=== PATIENT | female | born 1960 | race Asian ===

== ENCOUNTER 2017-01-05 10:27 | Inpatient (IN) | payer MEDICARE, MEDICAID ==
[~2017-01-05] VITALS: Ht 157.5 cm; Wt 44.0 kg
[2017-01-05 12:39] VITALS: BP 122/92
[2017-01-05] MEDS ORDERED: ZOLPIDEM TARTRATE 5 MG TABLET PO PRN (12:45)
[2017-01-05] MEDS ORDERED: HALOPERIDOL 5 MG TABLET PO PRN (12:45)
[2017-01-05] MEDS ORDERED: INFLUENZA VIRUS VACCINE QVS 2016-17 (3YR+)/PF 60 MCG/0.5 ML SYRINGE IM ONE (13:45)
[2017-01-05] MEDS ORDERED: PNEUMOCOCCAL VACCINE POLYVALENT 0.5 ML VIAL [PPSV23] IM ONE (13:45)
[2017-01-05 15:13] VITALS: BP 143/90
[2017-01-05] MEDS: LORazepam 1 MG TABLET PO PRN (16:56)
[2017-01-05 17:01] VITALS: BP 115/90
[2017-01-06 08:40] VITALS: BP 122/81
[2017-01-06 08:42] LABS: BASOPHILS % (AUTO) 0.5 % (0.0-2.0); EOSINOPHILS % (AUTO) 0.3 % (1.0-6.0); HEMATOCRIT 37.4 % (36-46); HEMOGLOBIN 12.1 g/dL (12.0-16.0); LYMPHOCYTES # (AUTO) 1.3 K/uL (1.0-4.8); LYMPHOCYTES % (AUTO) 21.3 % (22.0-44.0); MEAN CORPUSCULAR HGB CONC 32.3 G/dL (31.0-37.0); MEAN CORPUSCULAR VOLUME 90 fL (80-100); MONOCYTES # (AUTO) 0.4 K/uL (0.1-1.0); NEUTROPHILS # (AUTO) 4.3 K/uL (1.8-7.7); NEUTROPHILS % (AUTO) 71.9 % (40.0-70.0); PLATELET COUNT (AUTO) 289 K/uL (150-450); RED BLOOD CELL COUNT(AUTO) 4.18 MIL/uL (4.00-5.20); RED CELL DISTRIBUTION WIDTH 13.4 % (11.5-14.5)
[2017-01-06 09:09] LABS: ALANINE AMINOTRANSFERASE 27 U/L (12-78); ALBUMIN 3.4 g/dL (3.4-5.0); ANION GAP 8 mmol/L (8-16); ASPARTATE AMINOTRANSFERASE 22 U/L (15-37); BILIRUBIN,TOTAL 0.4 mg/dL (0.1-1.0); CALCIUM, TOTAL 8.6 mg/dL (8.8-10.5); CARBON DIOXIDE 29 mmol/L (22-29); CHLORIDE 107 mmol/L (98-107); CREATININE 0.66 mg/dL (0.60-1.30); GLOMERULAR FILTR. RATE CALC > 60 mL/min (>60); POTASSIUM 3.9 mmol/L (3.5-5.1); SODIUM SERUM 144 mmol/L (136-145); TOTAL PROTEIN, SERUM 7.2 g/dL (6.4-8.2); UREA NITROGEN, BLOOD 16 mg/dL (7-18)
[2017-01-06 16:40] VITALS: BP 140/84
[2017-01-06] MEDS: HALOPERIDOL 5 MG TABLET PO SCH (20:22)
[2017-01-07 06:27] VITALS: BP 110/72
[2017-01-07 08:44] LABS: CHOL/HDL RATIO 2.1 (3.9-5.7); THYROID STIMULATING HORMONE 0.47 uIU/mL (0.36-3.74)
[2017-01-07 08:59] VITALS: BP 121/105
[2017-01-07 16:33] VITALS: BP 130/80
[2017-01-07] MEDS: HALOPERIDOL 5 MG TABLET PO SCH (20:40)
[2017-01-08 07:09] VITALS: BP 110/72
[2017-01-08 08:34] VITALS: BP 117/62
[2017-01-08] MEDS: CHOLECALCIFEROL (VIT D3) 1,000 UNITS TABLET PO SCH (10:06)
[2017-01-08 16:20] VITALS: BP 130/95
[2017-01-08] MEDS: HALOPERIDOL 5 MG TABLET PO SCH (21:08)
[2017-01-09 06:33] VITALS: BP 114/63
[2017-01-09 08:01] VITALS: BP 130/78
[2017-01-09] MEDS: CHOLECALCIFEROL (VIT D3) 1,000 UNITS TABLET PO SCH (09:27)
[2017-01-09 16:15] VITALS: BP 118/65
[2017-01-09] MEDS: HALOPERIDOL 5 MG TABLET PO SCH (20:35)
[2017-01-10 07:08] VITALS: BP 112/62
[2017-01-10] MEDS: CHOLECALCIFEROL (VIT D3) 1,000 UNITS TABLET PO SCH (08:05)
[2017-01-10] MEDS: LORazepam 1 MG TABLET PO PRN (08:05)
[2017-01-10 08:48] VITALS: BP 126/79
[2017-01-10 16:25] VITALS: BP 120/84
[2017-01-10] MEDS: HALOPERIDOL 5 MG TABLET PO SCH (20:29)
[2017-01-11 06:32] VITALS: BP 117/78
[2017-01-11 08:02] VITALS: BP 112/63
[2017-01-11] MEDS: CHOLECALCIFEROL (VIT D3) 1,000 UNITS TABLET PO SCH (09:34)
[2017-01-11] MEDS: LORazepam 1 MG TABLET PO PRN (09:34)
[2017-01-11 16:12] VITALS: BP 116/74
[2017-01-11] MEDS: HALOPERIDOL 5 MG TABLET PO SCH (20:34)
[2017-01-12 06:41] VITALS: BP 123/81
[2017-01-12] MEDS: CHOLECALCIFEROL (VIT D3) 1,000 UNITS TABLET PO SCH (08:22)
[2017-01-12] MEDS: LORazepam 1 MG TABLET PO PRN (08:22)
[2017-01-12 09:02] VITALS: BP 137/80
[2017-01-12 17:48] VITALS: BP 115/85
[2017-01-12] MEDS: HALOPERIDOL 5 MG TABLET PO SCH (21:00)
[2017-01-13 06:34] VITALS: BP 101/72
[2017-01-13 08:29] VITALS: BP 109/78
[2017-01-13] MEDS: CHOLECALCIFEROL (VIT D3) 1,000 UNITS TABLET PO SCH (09:25)
[2017-01-13] MEDS ORDERED: HALO.5 PO (14:37)
[2017-01-13] MEDS ORDERED: CHOL100034 PO (14:41)
== END 2017-01-13 16:00 | disposition home or self-care (01) | DRG 885 ==
LOC: EDSTATUS 10:30 → B3A 12:44 → EDSTATUS 13:01 → B3A 15:31 → B2S 01-11 22:20
DX: F20.0 Paranoid schizophrenia (principal); R45.851 Suicidal ideations; E44.0 Moderate protein-calorie malnutrition; Z68.1 Body mass index [BMI] 19.9 or less, adult; I10 Essential (primary) hypertension; G47.00 Insomnia, unspecified; F32.9 Major depressive disorder, single episode, unspecified; R53.81 Other malaise; E83.51 Hypocalcemia; Z60.4 Social exclusion and rejection; Z91.14 Patient's other noncompliance with medication regimen; Z28.21 Immunization not carried out because of patient refusal
CPT/HCPCS: 82306; 84443; 90471